=== PATIENT | male | born 1940 | race Caucasian/White ===

== ENCOUNTER 2018-07-07 12:42 | Inpatient (IN) | payer OTHER ==
[~2018-07-07] VITALS: Ht 182.9 cm; Wt 92.0 kg
[~2018-07-07 12:42] MED LIST: ADULT LOW DOSE81 MG PO; AMOXICILLIN500 M1 PO; ATORVASTATIN CA40 MG PO; CARVEDILOL12.5 MG PO; COUMADIN PO; COUMADIN7.5 MG PO; HYDROCODONE-AP1 EAC6 PO; LANOXIN 0.250.25 M1 PO; LASIX 20 MG TAB20 MG PO; LOVENOX SC; PERCOCET 7.5-31 EACH PO; SIMVASTATIN40 MG PO; VICODIN ES TAB1 EACH PO
[2018-07-07 12:45] VITALS: BP 145/78
[2018-07-07] MEDS ORDERED: INSPRA25 MG PO (12:52)
[2018-07-07 13:10] LABS: ABSOLUTE EOSINOPHILS 0.2 thou/uL (0.0-0.7); ABSOLUTE LYMPHOCYTES 0.9 thou/uL (0.8-5.3); ABSOLUTE MONOCYTES 0.8 thou/uL (0.0-1.2); ABSOLUTE NEUTROPHILS 3.6 thou/uL (1.6-8.1); BASOPHILS 0.6 %; EOSINOPHILS 3.2 %; HEMATOCRIT 36.9 % (42.0-52.0); HEMOGLOBIN 11.9 gm/dL (14.0-18.0); LYMPHOCYTES 15.7 %; MCH 27.3 pg (26.0-34.0); MCHC 32.3 g/dL (28.0-37.0); MCV 84.3 fL (80.0-100.0); MONOCYTES 15.1 %; MPV 7.7 fl. (7.2-11.1); NUCLEATED RBCS 0 /100WBC; PLATELET COUNT* 137 thou/uL (150-400); POLYS 65.4 %; RBC 4.37 mil/uL (4.50-6.00); RDW-CV 18.9 % (10.5-14.5); WBC 5.5 thou/uL (4.0-11.0)
[2018-07-07 13:31] LABS: ALBUMIN 3.3 g/dL (3.4-5.0); CALCIUM 8.6 mg/dL (8.5-10.1); CREATININE 1.1 mg/dL (0.6-1.3); TOTAL BILIRUBIN 2.7 mg/dL (<0.1-1.0); TOTAL PROTEIN 7.1 g/dL (6.4-8.2)
[2018-07-07 13:38] LABS: APTT 34.1 Seconds (25.0-31.3); INR 1.8; PROTIME 18.1 Seconds (9.20-11.50)
[2018-07-07] MEDS ORDERED: COUMADIN 5 MG TA5 M1 PO ×2 (15:57→15:59)
--- NOTE | 2018-07-07 15:57 | EKG ---
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1940 Requested By: Melba Padilla Order Number: [id number] MD: Willian Padilla Measurements Intervals [place] Rate: 86 P: NM: QRS: -79 QRSD: 169 T: 94 QT: 424 QTc: 508 Interpretive Statements Atrial fibrillation RBBB and LAFB LVH with secondary repolarization abnormality Anterior Q waves, possibly due to LVH Lateral leads are also involved Compared to ECG 08/23/2013 11:58:26 Left anterior fascicular block now present Right bundle-branch block now present Left ventricular hypertrophy now present Early repolarization now present Q waves now present Electronically Signed On 07-07-2018 15:57:41 CDT by Willian Padilla [email or web address] <ELECTRONICALLY SIGNED> By: Willian Padilla MD, FACC 07/07/18 1557 1248 1248 Willian Padilla MD, FACC /EPI
[2018-07-07 17:10] VITALS: BP 149/82
[2018-07-07 20:00] VITALS: BP 148/83
[2018-07-08] VITALS: BP 142/80
[2018-07-08 04:00] VITALS: BP 101/57
[2018-07-08 05:45] LABS: ABSOLUTE EOSINOPHILS 0.2 thou/uL (0.0-0.7); ABSOLUTE LYMPHOCYTES 0.9 thou/uL (0.8-5.3); ABSOLUTE MONOCYTES 0.8 thou/uL (0.0-1.2); ABSOLUTE NEUTROPHILS 3.2 thou/uL (1.6-8.1); BASOPHILS 0.6 %; EOSINOPHILS 3.7 %; HEMATOCRIT 36.6 % (42.0-52.0); HEMOGLOBIN 11.8 gm/dL (14.0-18.0); MCH 27.4 pg (26.0-34.0); MCHC 32.3 g/dL (28.0-37.0); MCV 84.8 fL (80.0-100.0); MONOCYTES 16.1 %; MPV 8.2 fl. (7.2-11.1); NUCLEATED RBCS 0 /100WBC; PLATELET COUNT* 122 thou/uL (150-400); POLYS 62.6 %; RBC 4.32 mil/uL (4.50-6.00); WBC 5.1 thou/uL (4.0-11.0)
[2018-07-08 06:06] LABS: CALCIUM 8.5 mg/dL (8.5-10.1); POTASSIUM 3.9 mmol/L (3.5-5.1)
[2018-07-08 06:32] LABS: PROTIME 20.6 Seconds (9.20-11.50)
[2018-07-08 08:13] VITALS: BP 110/66
[2018-07-08 12:00] VITALS: BP 133/72
[2018-07-08 13:38] LABS: CHOLESTEROL 65 mg/dL (<200); HDL CHOLESTEROL 28 mg/dL (>40); LDL CHOLESTEROL 28 mg/dL (<100); TC:HDL 2.3 Ratio (Not establshd); TRIGLYCERIDE 49 mg/dL (<150); VLDL 10 mg/dL (<40)
[2018-07-08 13:39] LABS: SERUM ASSESSMENT Clear
--- NOTE | 2018-07-08 14:16 | EKG ---
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1940 Requested By: Melba Padilla Order Number: [id number] MD: Pepe King Measurements Intervals [place] Rate: 64 P: VT: QRS: -76 QRSD: 168 T: 94 QT: 466 QTc: 481 Interpretive Statements Atrial fibrillation Right bundle branch block LVH with secondary repolarization abnormality Probable anterior infarct, age indeterminate Electronically Signed On 07-08-2018 14:16:16 CDT by Pepe King [email or web address] <ELECTRONICALLY SIGNED> By: Pepe King MD, [facility] 07/08/18 1416 1509 [id number] Pepe King MD, FACC /EPI
--- NOTE | 2018-07-08 17:00 | CARDNUC ---
[place] [address] CARDIAC NUCLEAR IMAGING REPORT Name: GARDUNO,GAUTAM Room: [address] IN [facility]#: [id number] Admission: 07/07/18 Attend Phys: Guy Witt, Discharge: Date of : 44 Date of Service: 07/08/18 1659 Report #: [id number] THIS REPORT FOR: //name// APPROVED REPORT Study performed: 07/08/2018 12:54:00 Indication: Chest pain Patient Location: In-Patient Room #: 201 Stress Tech: Radha Odell Stress Nurse: Ashlyn Gomez RN Ht: 6 ft 0 in Wt: 202 lbs BSA: 2.14 m2 BMI: 27.39 Rhythm: AFIB Medical History Medical History: CP X several days Medications: carvedilol, digoxin, ASA, atorvastatin, warfarin Allergies: NKDA Cardiac 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 Time of rest injection: 14:10 The images were gated to evaluate regional wall motion and calculate left ventricular ejection fraction. Administration Route: IV Administration Site: Left AC Pharmacologic Stress Pharmacologic stress test was performed by injecting Regadenoson 0.4 mg IV push over 10-15 seconds immediately followed by the intravenous injection of 33.3 mCi of Tc-99m Sestamibi. Time of stress injection: 15:20 Administration Route: IV Administration Site: Left AC Heart Rate at time of stress injection: 82 bpm. Gated Stress SPECT was performed 40 [place] [address] CARDIAC NUCLEAR IMAGING REPORT Name: GAUTAM GARDUNO Room: [address] IN [facility].#: [id number] Admission: 07/07/18 Attend Phys: Guy Witt, Discharge: Date of : 44 Date of Service: 07/08/18 1659 Report #: [id number] injection. The images were gated to evaluate regional wall motion and calculate left ventricular ejection fraction. Prone imaging was performed. Stress Test Details Stress Test: Pharmacologic stress testing performed using 0.4 mg of regadenoson per 5 mL given IV over 10 seconds. HR Max Heart Rate (APMHR): 144 bpm Resting HR: 76 bpm Target HR (85% APMHR): 122 bpm Max HR Achieved: 82 bpm % of APMHR: 56 Recovery HR: 81 bpm BP Resting BP: 137/81 mmHg Max BP: 119/75 mmHg Recovery BP: 133/72 mmHg ECG Resting ECG: atrial fibrillation with right bundle-branch block and left ventricular hypertrophy with repolarization abnormalities. Stress ECG: atrial fibrillation with right bundle-branch block and left ventricular hypertrophy with repolarization abnormalities. ST Change: None Arrhythmia: None Recovery ECG: atrial fibrillation with right bundle-branch block and left ventricular hypertrophy with repolarization abnormalities. Recovery ST Change: None Recovery Arrhythmia: None Clinical Reason for Termination: Completed protocol Stress Symptoms: none The patient tolerated Lexiscan infusion without significant symptoms. Stress ECG Conclusion The baseline 12-lead EKG shows atrial fibrillation with right bundle-branch block and left ventricular hypertrophy with repolarization abnormalities. His obtained during and post Lexiscan infusion show no significant changes. There were no stress[place] [address] CARDIAC NUCLEAR IMAGING REPORT Name: GAUTAM GARDUNO Room: [address] IN [facility]#: [id number] Admission: 07/07/18 Attend Phys: Guy Witt, Discharge: Date of : 44 Date of Service: 07/08/18 1659 Report #: [id number] Study Quality Study: Good Artifact: No artifact Study Data At rest, the left ventricular ejection fraction was 28%.. Post stress, the left ventricular ejection was 28%.. TID = 0.92. Perfusion There is a moderate size severe intensity fixed defect of the apex. There is a moderate size severe intensity fixed defect of the basal portion the inferior wall. No reversible defects were identified. Wall Motion There is akinesis of the apex. 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 There is severe hypokinesis of the inferior wall. 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 There were no reversible defects to suggest ischemia. Overall LV systolic function is severely decreased with an ejection fraction Ticlid be 28%. Findings consistent with ischemic cardiomyopathy. <Conclusion> The baseline 12-lead EKG shows atrial fibrillation with right bundle-branch block and left ventricular hypertrophy with repolarization abnormalities. His obtained during and post Lexiscan infusion show no significant changes. There were no stress-induced arrhythmias. <ELECTRONICALLY SIGNED> By: Willian Padilla MD, FACC 07/08/18 1659 58 58 Willian Padilla MD, FACC /INF
[2018-07-08 18:13] VITALS: BP 133/72
== END 2018-07-08 19:01 | disposition home or self-care (01) | DRG 391 ==
LOC: M.ERS 12:42 → M.TBA-ER 16:04 → M.2W 16:04
PROVIDERS: Personal Emergency Response Attendant; Registered Nurse; ADMIT Internal Medicine
DX: K21.9 Gastro-esophageal reflux disease without esophagitis (principal); I50.43 Acute on chronic combined systolic (congestive) and diastolic (congestive) heart failure; D68.69 Other thrombophilia; I25.118 Atherosclerotic heart disease of native coronary artery with other forms of angina pectoris; I48.2 Chronic atrial fibrillation; E78.5 Hyperlipidemia, unspecified; I25.5 Ischemic cardiomyopathy; Z96.641 Presence of right artificial hip joint; Z85.72 Personal history of non-Hodgkin lymphomas; I25.2 Old myocardial infarction; Z95.1 Presence of aortocoronary bypass graft; Z95.2 Presence of prosthetic heart valve; Z95.810 Presence of automatic (implantable) cardiac defibrillator; Z79.01 Long term (current) use of anticoagulants; Z79.82 Long term (current) use of aspirin; Z79.899 Other long term (current) drug therapy